=== PATIENT | male | born 1995 | race Caucasian/White ===

== ENCOUNTER 2023-01-21 19:07 | Emergency (ER) | payer OTHER, SELFPAY ==
[2023-01-21 19:12] VITALS: BP 162/87; PULSE 111; RESP 20; TEMP 36.6; O2SAT 100
--- NOTE | 2023-01-21 19:17 | ED.SKABFB ---
HPI - Skin/Abscess/Foreign Bdy General Chief complaint: Skin/Abscess/Foreign Body Stated complaint: Rash History of Present Illness HPI narrative: patient presents with poison selene to both legs and right arm no concern for infection no drainage Related Data Allergies Allergy/AdvReac Type Severity Reaction Status Date / Time No Known Allergies Allergy Unknown Unverified 01/10/17 08:06 Review of Systems Review of Systems: CONSTITUTIONAL: Denies fever, chills, or sweats. EYES: Denies visual changes, redness, or discharge. ENT: Denies rhinorrhea, congestion, sore throat, or otalgia. CARDIOVASCULAR: Denies chest pain, palpitations, or edema. RESPIRATORY: Denies cough or dyspnea. GASTROINTESTINAL: Denies abdominal pain, nausea, vomiting, or diarrhea. GENITOURINARY: Denies dysuria or hematuria. SKIN: Denies rash or itching. MUSCULOSKELETAL: Denies back pain, joint pain, or myalgia. NEUROLOGIC: Denies headache, numbness, or weakness. PSYCHIATRIC: Denies anxiety or depression. [facility] Social History Social History Smoking status: Never smoker Alcohol intake: never Comments At time of signature, agree with nursing past medical, surgical, social and family history. There is no relevant family history pertinent to the presenting complaint Exam Narrative: GENERAL: Well-appearing, well-nourished, and in no acute distress. HEAD: Normocephalic, atraumatic. EYES: PERRLA and EOMI. ENT: Nares clear, no rhinorrhea or epistaxis. Mucous membranes moist. NECK: Supple. CHEST: Clear to auscultation. No respiratory distress. HEART: Regular rate and rhythm. No murmur heard. Normal peripheral pulses. ABDOMEN: Soft, nontender, nondistended, normal active bowel sounds. EXTREMITIES: Normal range of motion. No edema. SKIN: Warm, dry, no rash. both lower extremities and right arm RASH CONSISTENT WITH RHUS DERMATITIS. LINEAR VIVEROS WITH WET LIKE APPEARS ON NEW AREAS. DIFFERENT STAGES PRESENT. REDNESS TO LESIONS. NO SIGNS OF INFECTION OR CELLULITIS/ABSCESS. NO VESICLES. NO ULCERATIONS. NO RAISED URTICARIAL LESIONS. NO LESIONS ALONG THE WAISTBAND OR IN WEB SPACES. NO BURROWS. NO PETECHIAE. ? NEURO: No focal deficits. Alert and oriented x3. [place] Coma Scale Eye Opening: Spontaneous 4 [place] Coma Scale Motor: Obeys Commands 6 Vladislav Coma Scale Verbal: Oriented 5 [place] Coma Scale Total 15 Course Course Level of Care: Express Care Visit Vital Signs Vital signs: Vital Signs Temperature 36.6 C 01/21/23 19:12 Pulse Rate 111 H 01/21/23 19:12 Respiratory Rate 20 01/21/23 19:12 Blood Pressure 162/87 H 01/21/23 19:12 Pulse Oximetry 100 01/21/23 19:12 Oxygen Delivery Room Air 01/21/23 19:12 Temperature 36.6 C 01/21/23 19:12 Pulse Rate 111 H 01/21/23 19:12 Respiratory Rate 20 01/21/23 19:12 Blood Pressure 162/87 H 01/21/23 19:12 Pulse Oximetry 100 01/21/23 19:12 Oxygen Delivery Room Air 01/21/23 19:12 Please YOSELIN schedule a followup visit with your personal physician for further evaluation and treatment. Including recheck and discussion of your blood pressure. If your symptoms persist, change or worsen significantly before you can contact your personal physician then please, without delay, go to the emergency department for further evaluation Discharge Plan Discharge Clinical Impression: Poison selene Patient Disposition: Home, Self-Care Condition: Stable Instructions: Poison Selene (ED) Additional Instructions: Poisonivy 1. Please be aware that the oil from the plant is what causes the skin irritation, it will continue to spread as long as the oils are present. Please wash all clothing, bedding, equipment that came into contact with the plant to prevent further spreading. Animal fur can also cause spread of oils. 2. You can apply 1% Hydrocortisone cream on the rash, in smaller distributed areas, do no cover body, up to 3 times a day. This is available over the counter. 3. C
== END 2023-01-21 19:25 | disposition home or self-care (01) ==
PROVIDERS: Emergency Provider Nurse Practitioner Family
DX: L23.7 Allergic contact dermatitis due to plants, except food (principal)
CPT/HCPCS: 99213; G0463

== ENCOUNTER 2023-01-28 15:04 | Emergency (ER) | payer OTHER, SELFPAY ==
[2023-01-28 15:16] VITALS: BP 145/88; PULSE 95; RESP 14; TEMP 37.1; O2SAT 100
--- NOTE | 2023-01-28 15:32 | ED.SKABFB ---
HPI - Skin/Abscess/Foreign Bdy General Chief complaint: Skin/Abscess/Foreign Body Stated complaint: rash on body Time Seen by Provider: 01/28/23 15:23 Source: patient and RN notes reviewed Mode of arrival: ambulatory Limitations: no limitations History of Present Illness HPI narrative: Patient presents today complaining of an ongoing rash to his arms legs. He states he had exposure to poison bertin over a week ago and was seen at another [facility] on 01/21/2023 and was treated with 5 days of prednisone. States symptoms did improve, but then the day following finishing the steroids his symptoms worsened again. He has been taking Benadryl that does help with some itching. Related Data Allergies Allergy/AdvReac Type Severity Reaction Status Date / Time No Known Allergies Allergy Unknown Verified 01/28/23 15:08 Review of Systems Review of Systems: CONSTITUTIONAL: Denies body aches, fever, chills, or sweats. EYES: Denies visual changes, redness, or discharge. ENT: Denies rhinorrhea, congestion, sore throat, or otalgia. CARDIOVASCULAR: Denies chest pain, palpitations, or edema. RESPIRATORY: Denies cough or dyspnea. GASTROINTESTINAL: Denies abdominal pain, nausea, vomiting, or diarrhea. GENITOURINARY: Denies dysuria or hematuria. SKIN:+ pruritic rash MUSCULOSKELETAL: Denies back pain, joint pain, or myalgia. NEUROLOGIC: Denies headache, numbness, tingling, or weakness. PSYCH: Denies depression or anxiety. [facility] Social History Social History Smoking status: Never smoker Alcohol intake: never Comments At time of signature, I have reviewed and agree with nursing past medical, surgical, social and family history unless otherwise noted. Please see nursing chart for further information. There is no relevant family history pertinent to the presenting complaint Exam Narrative: GENERAL: Well-appearing, well-nourished, and in no acute distress. HEAD: Normocephalic, atraumatic. EYES: EOMI. No redness or drainage. Conjunctivae normal. ENT: Mucous membranes pink and moist. NECK: Normal AROM. CHEST: No respiratory distress. EXTREMITIES: Normal range of motion. No edema. SKIN: Warm, dry. Capillary refill normal. Normal skin turgor. Erythematous papular patches to the bilateral legs and upper arms with some surrounding urticarial lesions to the lower legs, forearms, and hands. Mild edema to the bilateral ankles and fingers. Distal sensation intact in all 4 extremities. Capillary refill normal. NEURO: No focal deficits. Alert and oriented x3. Gait steady. PSYCH: Normal affect. No signs of depression or anxiety. Course Course Level of Care: Express Care Visit Vital Signs Vital signs: Vital Signs Temperature 98.7 F 01/28/23 15:16 Pulse Rate 95 01/28/23 15:16 Respiratory Rate 14 01/28/23 15:16 Blood Pressure 145/88 H 01/28/23 15:16 Pulse Oximetry 100 01/28/23 15:16 Oxygen Delivery Room Air 01/28/23 15:16 Temperature 98.7 F 01/28/23 15:16 Pulse Rate 95 01/28/23 15:16 Respiratory Rate 14 01/28/23 15:16 Blood Pressure 145/88 H 01/28/23 15:16 Pulse Oximetry 100 01/28/23 15:16 Oxygen Delivery Room Air 01/28/23 15:16 Reviewed. Pt has been instructed to follow up with his PCP regarding his elevated blood pressure today. MDM - Skin/Abscess/Foreign Bdy MDM Narrative Medical decision making narrative: Patient is likely having some rebound dermatitis and needs further steroid treatment. Will treat with prednisone taper. Instructed patient to continue Benadryl if needed. Anticipatory guidance given. Differential Diagnosis Differential diagnosis: Likely abscess of skin or subcutaneous tissue, viral exanthem, urticaria, cellulitis, impetigo and contact dermatitis Critical Care Time Critical Care Time Critical Care Time: No Discharge Plan Discharge Clinical Impression: Dermatitis Patient Disposition: H
== END 2023-01-28 15:38 | disposition home or self-care (01) ==
PROVIDERS: Emergency Provider Nurse Practitioner; PCP Emergency Medicine
DX: L30.9 Dermatitis, unspecified (principal)
CPT/HCPCS: 99213; G0463